=== PATIENT | female | born 1965 | race Caucasian/White ===

== ENCOUNTER 2017-11-23 05:22 | Emergency (ER) | payer BC, OTHER ==
[~2017-11-23] VITALS: Ht 160 cm; Wt 73.6 kg
[~2017-11-23 05:22] MED LIST: CARAFATE 1GM1 G PO; CLARITIN 1010 MG/TAB PO; CLEOCIN HC150 MG/CAP PO; GLUCOPHAGE500 MG/TAB PO; GLUCOTROL10 MG PO; NASACORT OTC NS; NASAL DECONGEST10 MG PO; NEXIUM 40MG40 MG PO; PRILOSEC 20MG20 MG PO; ZANTAC 150MG T150 MG PO
[2017-11-23 05:34] VITALS: TEMP 97.8
[2017-11-23 06:06] LABS: COLLECTION METHOD CLEAN CATCH
[2017-11-23 06:09] LABS: HEMATOCRIT 37.2 % (37.0-47.0); MEAN CELL VOLUME 90 fl (80.0-100.0); MEAN CORPUSCULAR HEMOGLOBIN 28 pg (27.0-31.0); MEAN CORPUSCULAR HGB CONC 31 g/dl (33.0-37.0); PLATELET COUNT 609 K/mm3 (130-400); RED BLOOD COUNT 4.12 M/mm3 (4.10-5.30); REDCELL DISTRIBUTION WIDTH-CV 14.1 % (11.5-14.5)
[2017-11-23 06:11] LABS: HEMOGLOBIN 11.6 g/dl (12.5-16.0)
[2017-11-23 06:13] LABS: PH 7 (5-8); SQUAMOUS EPITHELIAL 0-2 /hpf; URINE APPEARANCE Clear; URINE BACTERIA None Seen /hpf; URINE BILIRUBIN Negative (NEGATIVE); URINE BLOOD Negative (NEGATIVE); URINE COLOR Straw; URINE GLUCOSE Negative (NEGATIVE); URINE KETONE Negative (NEGATIVE); URINE LEUKOCYTE ESTERASE Negative (NEGATIVE); URINE NITRATE Negative (NEGATIVE); URINE PROTEIN(semi-quant) Negative (NEGATIVE); URINE RBC 0-2 /hpf; URINE UROBILINOGEN Negative (NEGATIVE)
[2017-11-23 06:15] LABS: INR 1.2 (0.8-3.0); PROTHROMBIN TIME 14.2 SECONDS (9.7-12.8)
[2017-11-23 06:17] LABS: PARTIAL THROMBOPLASTIN TIME 28.8 SECONDS (26.0-37.0)
[2017-11-23 06:21] LABS: ALBUMIN 3.9 gm/dL (3.5-5.0); BILIRUBIN,TOTAL 0.4 mg/dL (0.0-1.0); CALCIUM 9.2 mg/dL (8.4-10.2); CREATININE, serum 0.71 mg/dL (0.52-1.25); POTASSIUM 4.3 mmol/L (3.4-5.0); TOTAL PROTEIN 7.4 gm/dL (6.4-8.2)
[2017-11-23 06:39] LABS: TROPONIN-I 0.056 ng/mL (0.000-0.034)
[2017-11-23] MEDS ORDERED: ASPIRIN 32325 MG/TAB PO (06:50)
[2017-11-23] MEDS ORDERED: LANTUS SOLOS100 U/ML SQ (06:50)
[2017-11-23] MEDS ORDERED: HUMALOG100 U/ML SQ (06:51)
[2017-11-23 06:52] LABS: BAND 3 % (0-10); EOSINOPHIL 2 % (0-4); LYMPHOCYTE 23 % (20.0-51.0); NEUTROPHILS 67 % (42.0-75.2)
[2017-11-23] MEDS ORDERED: CLARITIN 1010 MG/TAB PO (06:52)
[2017-11-23 06:53] LABS: PLATELET ESTIMATE INCREASED (NORMAL)
[2017-11-23] MEDS ORDERED: ZANTAC 150MG15 MG/M1 PO (06:53)
[2017-11-23] MEDS ORDERED: NASAL DECONGEST10 MG PO (06:53)
[2017-11-23] MEDS ORDERED: LOPRESSOR 225 MG/TAB PO (06:53)
[2017-11-23 06:54] LABS: ANISOCYTOSIS 1+; POLYCHROMASIA 1+
[2017-11-23] MEDS ORDERED: CRESTOR5 MG PO (06:54)
[2017-11-23] MEDS ORDERED: PACERONE200 MG PO (06:55)
[2017-11-23] MEDS ORDERED: PERCOCET 325 MG1 TA2 PO (06:55)
[2017-11-23] MEDS ORDERED: DOXYCYCLINE 10100 MG PO (07:09)
[2017-11-23] MEDS ORDERED: ATIVAN 0.50.5 MG/TAB PO (07:09)
[2017-11-23 07:40] VITALS: BP 123/68; PULSE 85
== END 2017-11-23 07:40 | disposition home or self-care (01) ==
LOC: COL.ER 05:22
PROVIDERS: Emergency Medicine
DX: R42 Dizziness and giddiness (principal); T46.2X5A Adverse effect of other antidysrhythmic drugs, initial encounter; J40 Bronchitis, not specified as acute or chronic; J98.11 Atelectasis; J06.9 Acute upper respiratory infection, unspecified; I25.10 Atherosclerotic heart disease of native coronary artery without angina pectoris; I48.91 Unspecified atrial fibrillation; Z95.1 Presence of aortocoronary bypass graft; Z90.710 Acquired absence of both cervix and uterus; Z90.49 Acquired absence of other specified parts of digestive tract; Z79.82 Long term (current) use of aspirin; Z79.4 Long term (current) use of insulin
CPT/HCPCS: J2060; J2405; J7030

== ENCOUNTER 2018-01-15 16:05 | Outpatient (RCR) | payer BC, OTHER ==
[~2018-01-15 16:05] MED LIST changes: +ASPIRIN 32325 MG/TAB PO; +ATIVAN 0.50.5 MG/TAB PO; +CRESTOR5 MG PO; +DOXYCYCLINE 10100 MG PO; +HUMALOG100 U/ML SQ; +LANTUS SOLOS100 U/ML SQ; +LOPRESSOR 225 MG/TAB PO; +PACERONE200 MG PO; +PERCOCET 325 MG1 TA2 PO; +ZANTAC 150MG15 MG/M1 PO
== END 2018-03-04 | disposition home or self-care (01) ==
LOC: COL.CR
DX: Z48.812 Encounter for surgical aftercare following surgery on the circulatory system (principal); Z95.1 Presence of aortocoronary bypass graft; I21.9 Acute myocardial infarction, unspecified; I25.10 Atherosclerotic heart disease of native coronary artery without angina pectoris

== ENCOUNTER 2018-07-18 19:28 | Emergency (ER) | payer BC, OTHER ==
[~2018-07-18] VITALS: Ht 160 cm; Wt 70.9 kg
[2018-07-18 19:37] VITALS: TEMP 98.3
[2018-07-18] MEDS ORDERED: GLUCOPHAGE500 MG/TAB PO (19:49)
[2018-07-18] MEDS ORDERED: GLUCOTROL10 MG PO (19:50)
[2018-07-18] MEDS ORDERED: AMOXICILLIN 8751 TAB PO (19:50)
[2018-07-18] MEDS ORDERED: ALLEGRA ALLERGY60 MG PO (19:50)
[2018-07-18] MEDS ORDERED: ANTIVERT 12.512.5 MG PO (19:51)
[2018-07-18 20:06] LABS: BASO # 0.1 (0.0-0.2); BASO % 0.7 % (0.0-2.0); EOS # 0.2 (0.0-0.7); EOS % 1.2 % (0-4.0); GRAN # 5.9 (1.4-6.5); GRAN % 45.2 % (42.2-75.2); HEMATOCRIT 42.8 % (37.0-47.0); HEMOGLOBIN 14.1 g/dl (12.5-16.0); LYMPH # 5.7 (1.2-3.4); LYMPH % 44.3 % (20.0-51.0); MEAN CELL VOLUME 85 fl (80.0-100.0); MEAN CORPUSCULAR HEMOGLOBIN 28 pg (27.0-31.0); MEAN CORPUSCULAR HGB CONC 33 g/dl (33.0-37.0); MEAN PLATELET VOLUME 9.5 fl (7.4-10.4); MONO % 7.9 % (1.7-9.3); PLATELET COUNT 328 K/mm3 (130-400); RED BLOOD COUNT 5.03 M/mm3 (4.10-5.30); REDCELL DISTRIBUTION WIDTH-CV 11.9 % (11.5-14.5)
[2018-07-18 20:18] LABS: COLLECTION METHOD CLEAN CATCH
[2018-07-18 20:24] LABS: MUCOUS Present /lpf; PH 6 (5-8); SQUAMOUS EPITHELIAL 0-2 /hpf; URINE APPEARANCE Clear; URINE BACTERIA None Seen /hpf; URINE BILIRUBIN Negative (NEGATIVE); URINE BLOOD Negative (NEGATIVE); URINE COLOR Colorless; URINE GLUCOSE Negative (NEGATIVE); URINE KETONE Negative (NEGATIVE); URINE LEUKOCYTE ESTERASE Negative (NEGATIVE); URINE NITRATE Negative (NEGATIVE); URINE PROTEIN(semi-quant) Negative (NEGATIVE); URINE RBC None Seen /hpf; URINE UROBILINOGEN Negative (NEGATIVE)
[2018-07-18 20:34] LABS: ALANINE AMINOTRANSFERASE 32 U/L (9-52); ALBUMIN 4.3 gm/dL (3.5-5.0); ALKALINE PHOSPHATASE 74 U/L (50-136); ANION GAP 7 mmol/L (7-16); AST,SGOT 16 U/L (15-37); BILIRUBIN,TOTAL 0.3 mg/dL (0.0-1.0); BLOOD UREA NITROGEN 12 mg/dL (7-17); C-REACTIVE PROTEIN 1.3 mg/dL (0.0-0.9); CALCIUM 9.5 mg/dL (8.4-10.2); CARBON DIOXIDE 29 mmol/L (22-30); CHLORIDE 105 mmol/L (98-107); GLUCOSE 163 mg/dL (74-106); LIPASE 148 U/L (23-300); POTASSIUM 4.2 mmol/L (3.4-5.0); SODIUM 140 mmol/L (137-145); TOTAL PROTEIN 7.7 gm/dL (6.4-8.2)
[2018-07-18 20:44] LABS: TROPONIN-I < 0.012 ng/mL (0.000-0.034)
[2018-07-18 23:30] VITALS: BP 137/68; PULSE 89
== END 2018-07-18 23:32 | disposition home or self-care (01) ==
LOC: COL.ER 19:28
PROVIDERS: Emergency Medicine
DX: R10.10 Upper abdominal pain, unspecified (principal); I25.10 Atherosclerotic heart disease of native coronary artery without angina pectoris; E11.9 Type 2 diabetes mellitus without complications; I10 Essential (primary) hypertension; K21.9 Gastro-esophageal reflux disease without esophagitis; Z79.4 Long term (current) use of insulin; Z79.82 Long term (current) use of aspirin; Z95.5 Presence of coronary angioplasty implant and graft; Z90.49 Acquired absence of other specified parts of digestive tract
CPT/HCPCS: J7030; Q9967